=== PATIENT | male | born 1985 | race Hispanic/Latino ===

== ENCOUNTER 2017-02-05 16:25 | Emergency (ER) | payer OTHER ==
[2017-02-05 16:32] VITALS: BP 115/62; PULSE 56; RESP 20; TEMP 97.6; O2SAT 100
--- NOTE | 2017-02-05 17:15 | ED PDOC ---
Syncope/Near Syncope/Dizzyness Time Seen by Provider: 02/05/17 17:03 Chief Complaint (Nursing): Seizure Chief Complaint (Provider): Near Syncope History Per: Patient, Family () History/Exam Limitations: no limitations Onset/Duration Of Symptoms: Hrs (just prior to arrival) Current Symptoms Are (Timing): Still Present Activity At Onset Of Symptoms: Sitting (in chair at [facility]) Fall Associated With With Symptoms: No Additional Complaint(s): Otis Nassar is a 32 year old male, with a past medical history inclusive of HTN (amlodipine compliant, years), gastritis (prilosec compliant, years) and depression (Zoloft compliant, x3 months), who presents to the ED on 02/05/17, via EMS and accompanied by his , for evaluation s/p episode of near syncope that he had experienced just prior to arrival as he had been sitting in the chair at the [facility]. Episode had been preceded by his having become acutely hot/diaphoretic, at which time he had also begun to see spots within his visual field. Talha, who had witnessed the incident, had additionally reported that the patient had experienced 2 episodes of "shaking", lasting for approximately 30 seconds each. Though patient states he had almost tipped out of the chair in which he had been sitting, he denies any loss of consciousness or incontinence; stating that, though he had been mildly confused post incident, he was still able to recognize everyone around him. Though he reports a mild/generalized headache upon initial ED evaluation, he further denies fever, chills, abdominal pain, nausea, vomiting, diarrhea, neck pain/stiffness, focal neurological deficits, lip/tongue injuries or recent illnesses/head injuries/acute stress. No prior history of seizures or thyroid issues (tested last year, negative). Most recent physical was as of last year, also reportedly normal. Of note, patient has reportedly been experiencing "panic attacks" over the past year, though those are usually characterized by tachycardia, diaphoresis, lightheadedness and acute shortness of breath. PMD: Dr. Pena Past Medical History Reviewed: Historical Data, Nursing Documentation, Vital Signs Vital Signs: Last Vital Signs Temp 97.6 F 02/05/17 16:29 Pulse 56 L 02/05/17 16:29 Resp 20 02/05/17 16:29 BP 115/62 02/05/17 16:29 Pulse Ox 100 02/05/17 16:29 - Medical History PMH: Depression, Gastritis, HTN Denies: Hyperthyroidism, Hypothyroidism - Surgical History Other surgeries: sinus surgery x2 - Family History Family History: States: CAD, Hypertension (hypercholesterolemia too) - Allergies Allergies/Adverse Reactions: Allergies Allergy/AdvReac Type Severity Reaction Status Date / Time Sulfa (Sulfonamide Allergy RASH Verified 02/05/17 16:28 Antibiotics) Review of Systems ROS Statement: Except As Marked, All Systems Reviewed And Found Negative Constitutional: Positive for: Sweats. Negative for: Fever, Chills Eyes: Positive for: Vision Change (seeing spots) ENT: Negative for: Mouth Pain Cardiovascular: Positive for: Other (near syncope) Gastrointestinal: Negative for: Nausea, Vomiting, Abdominal Pain, Diarrhea Musculoskeletal: Negative for: Neck Pain (no stiffness) Neurological: Positive for: Headache (mild, generalized). Negative for: Weakness, Numbness Physical Exam - Reviewed Nursing Documentation Reviewed: Yes Vital Signs Reviewed: Yes - Physical Exam Appears: Positive for: Non-toxic, No Acute Distress Head Exam: Positive for: ATRAUMATIC, NORMOCEPHALIC Skin: Positive for: Normal Color, Warm, Dry Eye Exam: Positive for: Normal appearance, EOMI, PERRL ENT: Positive for: Normal ENT Inspection Neck: Positive for: Normal, Painless ROM (no meningismus), Supple Cardiovascular/Chest: Positive for: Regular Rate, Rhythm. Negative for: Edema ( no leg swelling), Murmur Respiratory: Positive for: Normal Breath Sounds. Negative for: Respiratory Distress Gastrointestinal/Abdominal: Positive for: Normal Exam, Soft. Negative for: Tenderness Back: Positive for: Normal Inspection Extremity: Positive for: Normal ROM (moving all extremities well). Negative for : Deformity, Swelling Neurologic/Psych: Positive for: Alert, stucco worker II-XII (intact), Oriented. Negative for: Motor/Sensory Deficits (5/5 x4 extremities), Aphasia, Facial Droop - Laboratory Results Result Diagrams: 02/05/17 18:00 02/05/17 18:00 - ECG O2 Sat by Pulse Oximetry: 100 (RA) Pulse Ox Interpretation: Normal Medical Decision Making Medical Decision Makin:03 Initial Impression: near syncope Initial Plan: * EKG * CT Head w/o contrast * Labs * Alcohol Serum * Magnesium * Glucose/Blood/POC * Urine Drug Screen * IV NS 1000ml at 1000mls/hr * Reevaluation Scribe Attestation: Documented by Yudy Stinson, acting as a scribe for Lakia Tamayo MD. Provider Scribe Attestation: All medical record entries made by the Scribe were at my direction and personally dictated by me. I have reviewed the chart and agree that the record accurately reflects my personal performance of the history, physical exam, medical decision making, and the department course for this patient. I have also personally directed, reviewed, and agree with the discharge instructions and disposition. Disposition - Clinical Impression Clinical Impression: Syncope - Patient ED Disposition Is Patient to be Admitted: No Doctor Will See Patient In The: Office Counseled Patient/Family Regarding: Diagnosis, Need For Followup - Disposition Disposition: Routine/Home Disposition Time: 19:05 Condition: STABLE Instructions: Syncope (ED)
[2017-02-05] MEDS ORDERED: Sodium Chloride 0.9% 1,000 ML IV STA (17:20)
--- NOTE | 2017-02-05 18:13 | CT ---
PROCEDURE: CT HEAD WITHOUT CONTRAST. HISTORY: syncope vs. seizure, on SSRI and antihypetensives COMPARISON: None available. TECHNIQUE: Axial computed tomography images were obtained through the head/brain without intravenous contrast. Radiation dose: Total exam DLP = 832.08 mGy-cm. This CT exam was performed using one or more of the following dose reduction techniques: Automated exposure control, adjustment of the mA and/or kV according to patient size, and/or use of iterative reconstruction technique. FINDINGS: Streak artifact obscures evaluation of the skullbase. HEMORRHAGE: No intracranial hemorrhage. BRAIN: No mass effect or edema. No atrophy or chronic microvascular ischemic changes.Please note that MRI with diffusion imaging is more sensitive in the detection of acute ischemic event. VENTRICLES: No hydrocephalus. CALVARIUM: Unremarkable. PARANASAL SINUSES: No significant inflammatory changes. MASTOID AIR CELLS: No inflammatory changes. OTHER FINDINGS: None. IMPRESSION: No acute intracranial pathology identified. Findings as above.
[2017-02-05 18:15] LABS: BASO # 0.1 K/uL (0.0-0.2); BASO % 0.5 % (0.0-2.0); EOS # 0.1 K/uL (0.0-0.7); EOS % 0.6 % (0.0-4.0); HEMATOCRIT 44.7 % (35.0-51.0); LYMPH # 0.9 K/uL (1.0-4.3); LYMPH % 6.9 % (20.0-40.0); MEAN CELL VOLUME 94.1 fl (80.0-94.0); MEAN CORPUSCULAR HEMOGLOBIN 31.4 pg (27.0-31.0); MEAN CORPUSCULAR HGB CONC 33.4 g/dL (33.0-37.0); MONO # 0.9 K/uL (0.0-0.8); MONO % 6.4 % (0.0-10.0); NEUT # 11.4 K/uL (1.8-7.0); NEUT % 85.6 % (50.0-75.0); NRBC % 0.1 % (0.0-0.0); PLATELET COUNT 290 K/uL (130-400); RED CELL DISTRIBUTION WIDTH 12.8 % (11.5-14.5); WHITE BLOOD COUNT 13.3 K/uL (4.8-10.8)
[2017-02-05 18:22] LABS: ALB/GLOB RATIO 1.4 (1.0-2.1); ALCOHOL SERUM < 10 mg/dl (0-10); ALKALINE PHOSPHATASE 58 U/L (38-126); ALT/SGPT 40 U/L (21-72); AST/SGOT 30 U/L (17-59); BILIRUBIN,TOTAL 1.7 mg/dl (0.2-1.3); BLOOD UREA NITROGEN 18 mg/dl (9-20); CALCIUM 9.8 mg/dL (8.4-10.2); CARBON DIOXIDE 25 mmol/L (22-30); CHLORIDE 99 mmol/L (98-107); GFR AFRICAN-AMERICAN > 60; GLUCOSE,RANDOM 100 mg/dL (75-110); MAGNESIUM 2.2 MG/DL (1.6-2.3); POTASSIUM 4.5 MMOL/L (3.6-5.0); SODIUM 135 mmol/l (132-148); TOTAL PROTEIN 7.8 G/DL (6.3-8.2)
[2017-02-05 19:22] LABS: EOSINOPHIL 1 % (0-7); NEUTROPHIL 79 % (42-75); TOTAL CELLS COUNTED 100
--- NOTE | 2017-02-06 07:59 | CARD ---
APPROVED REPORT EKG Measurement Heart [id number] [place] [id number] <Conclusion> Sinus bradycardia Otherwise normal ECG
== END 2017-02-05 19:25 | disposition home or self-care (01) ==
LOC: H.ER 16:25
DX: R55 Syncope and collapse (principal); I10 Essential (primary) hypertension; Z82.49 Family history of ischemic heart disease and other diseases of the circulatory system